=== PATIENT | female | born 1995 | race Hispanic/Latino ===

== ENCOUNTER 2017-12-26 13:13 | Emergency (ER) | payer BC ==
[2017-12-26 13:36] VITALS: BP 121/70; PULSE 91; RESP 16; TEMP 97; O2SAT 100
[2017-12-26] MEDS ORDERED: Sodium Chloride 0.9% 1,000 ML IV STA (14:27)
--- NOTE | 2017-12-26 14:30 | ED PDOC ---
HPI: Abdomen Time Seen by Provider: 12/26/17 14:16 Chief Complaint (Nursing): Abdominal Pain Chief Complaint (Provider): Abdominal Pain History Per: Patient History/Exam Limitations: no limitations Onset/Duration Of Symptoms: Days (x1) Current Symptoms Are (Timing): Still Present Exacerbating Factors: Movement, Cough Additional Complaint(s): 22 year old female with no past medical history presents to the ED complaining of lower abdominal pain since this morning. States pain worsens with movement, especially coughing/sneezing. Denies any associated dysuria, frequency, fever, nausea, vomiting, diarrhea, back pain, vaginal bleeding/discharge, shortness of breath, or chest pain. She states she has urinated 3 times today, which is less than usual, with small urinary volumes. PMD: [facility] Past Medical History Reviewed: Historical Data, Nursing Documentation, Vital Signs Vital Signs: Last Vital Signs Temp 97.0 F L 12/26/17 13:34 Pulse 91 H 12/26/17 13:34 Resp 16 12/26/17 13:34 BP 121/70 12/26/17 13:34 Pulse Ox 100 12/26/17 16:07 - Medical History PMH: No Chronic Diseases - Surgical History Surgical History: No Surg Hx - Family History Family History: States: Unknown Family Hx - Social History Current smoker - smoking cessation education provided: No Alcohol: Social Drugs: Denies - Home Medications Home Medications: Ambulatory Orders Medication Instructions Recorded Ciprofloxacin 0.3% [Ciloxan 0.3% 2 drop OU Q4 #1 drop 05/23/15 [facility]] - Allergies Allergies/Adverse Reactions: Allergies Allergy/AdvReac Type Severity Reaction Status Date / Time sulfamethoxazole Allergy RASH Verified 12/26/17 13:34 [From Bactrim] trimethoprim [From Bactrim] Allergy RASH Verified 12/26/17 13:34 Review of Systems ROS Statement: Except As Marked, All Systems Reviewed And Found Negative Constitutional: Negative for: Fever, Chills Cardiovascular: Negative for: Chest Pain Respiratory: Negative for: Shortness of Breath Gastrointestinal: Positive for: Abdominal Pain. Negative for: Nausea, Vomiting , Diarrhea Genitourinary Female: Negative for: Dysuria, Frequency, Vaginal Discharge, Vaginal Bleeding Musculoskeletal: Negative for: Back Pain Physical Exam - Reviewed Nursing Documentation Reviewed: Yes Vital Signs Reviewed: Yes - Physical Exam Appears: Positive for: Non-toxic, No Acute Distress Head Exam: Positive for: ATRAUMATIC, NORMAL INSPECTION, NORMOCEPHALIC Skin: Positive for: Normal Color, Warm, Dry Eye Exam: Positive for: EOMI, Normal appearance, PERRL Neck: Positive for: Normal, Painless ROM Cardiovascular/Chest: Positive for: Regular Rate, Rhythm. Negative for: Murmur Respiratory: Positive for: Normal Breath Sounds. Negative for: Accessory Muscle Use, Respiratory Distress Gastrointestinal/Abdominal: Positive for: Soft, Tenderness (mild tenderness across lower abdomen). Negative for: Distended, Guarding, Rebound Back: Positive for: Normal Inspection. Negative for: L CVA Tenderness, R CVA Tenderness, Vertebral Tenderness Extremity: Positive for: Normal ROM. Negative for: Pedal Edema, Deformity Neurologic/Psych: Positive for: Alert, Oriented (x3). Negative for: Motor/ Sensory Deficits - Laboratory Results Result Diagrams: 12/26/17 14:53 12/26/17 14:53 Interpretation Of Abn Labs: 3.4 k - ECG O2 Sat by Pulse Oximetry: 100 (RA) Pulse Ox Interpretation: Normal - CT Scan/US Transvaginal US Other Rad Studies (CT/US): Read By Radiologist, Radiology Report Reviewed Other Rad Interpretation: No ultrasound evidence of acute pathology or suspicious lesion in uterus. - Progress ED Course And Treament: Ultrasound unremarkable. Will order CT Abd&Pelvis with PO & IV contrast. Labs reviewed, potassium is low. Patient given 20 meq potassium chloride. 1636: Stable. AAOx3. Dr. Cannon to take over care. Fu on CT. Medical Decision Making Medical Decision Making: Time: 14:26 Initial Plan: * CMP * Lipase * CBC * IV fluids * Toradol 15 mg IVP * Urine dip * Urine preg * Pending Transvaginal US Scribe Attestation: Documented by Corrine Batista, acting as a scribe for Everton Eaton MD Provider Scribe Attestation: All medical record entries made by the Scribe were at my direction and personally dictated by me. I have reviewed the chart and agree that the record accurately reflects my personal performance of the history, physical exam, medical decision making, and the department course for this patient. I have also personally directed, reviewed, and agree with the discharge instructions and disposition. Disposition - Clinical Impression Clinical Impression: Abdominal pain - Patient ED Disposition Is Patient to be Admitted: Transfer of Care - Disposition Disposition Time: 16:38 Condition: FAIR Forms: [employer] (Greenlandic) Patient Signed Over To: Rodrick Cannon
[2017-12-26 14:58] LABS: BASO # 0.1 K/uL (0.0-0.2); BASO % 1.3 % (0.0-2.0); EOS # 0.4 K/uL (0.0-0.7); EOS % 5.9 % (0.0-4.0); HEMOGLOBIN 9.3 g/dL (12.0-16.0); LYMPH # 1.7 K/uL (1.0-4.3); LYMPH % 23.2 % (20.0-40.0); MEAN CELL VOLUME 72.6 fl (81.0-99.0); MEAN CORPUSCULAR HGB CONC 31.7 g/dL (33.0-37.0); MEAN PLATELET VOLUME 8.3 fl (7.2-11.7); MONO # 0.4 K/uL (0.0-0.8); MONO % 5.3 % (0.0-10.0); NEUT # 4.6 K/uL (1.8-7.0); NEUT % 64.3 % (50.0-75.0); RBC 4.04 Mil/uL (3.80-5.20); RED CELL DISTRIBUTION WIDTH 16.8 % (11.5-14.5); WHITE BLOOD COUNT 7.2 K/uL (4.8-10.8)
[2017-12-26 15:11] LABS: ALB/GLOB RATIO 1.5 (1.0-2.1); ALBUMIN 4.5 g/dL (3.5-5.0); ALT/SGPT 55 U/L (9-52); AST/SGOT 39 U/L (14-36); BLOOD UREA NITROGEN 7 mg/dl (7-17); CALCIUM 9.3 mg/dL (8.4-10.2); GFR AFRICAN-AMERICAN > 60; GFR NON-AFRICAN AMERICAN > 60; LIPASE 81 U/L (23-300)
--- NOTE | 2017-12-26 15:31 | US ---
HISTORY: vaginal bleeding COMPARISON: None available. TECHNIQUE: Transvaginal ultrasound examination of the pelvis was performed. FINDINGS: UTERUS: Measures 7 x 4.9 x 3.6 cm. Normal in size and appearance. No fibroid or other mass lesion seen. ENDOMETRIUM: Measures 11.1 mm in diameter. Unremarkable. CERVIX: No cervical abnormality identified. RIGHT OVARY: Measures 3.2 x 3.2 x 1.7 cm. No solid mass. Normal flow. LEFT OVARY: Measures 2.2 x 2.6 x 1.3 cm. No solid mass. Normal flow. FREE FLUID: No significant free fluid noted. OTHER FINDINGS: None. IMPRESSION: No ultrasound evidence of acute pathology or suspicious lesion in the uterus and ovaries
[2017-12-26] MEDS ORDERED: Iohexol 240 (50 ml) PO ONE (15:46)
[2017-12-26] MEDS ORDERED: Potassium Chloride 20 mEq ER Tab PO STA (15:47)
--- NOTE | 2017-12-26 16:45 | ED PDOC ---
- Laboratory Results Result Diagrams: 12/26/17 14:53 12/26/17 14:53 - ECG O2 Sat by Pulse Oximetry: 100 (RA) Pulse Ox Interpretation: Normal Medical Decision Making Medical Decision Making: Time: 17:00 Patient endorsed to me by Dr. Everton Eaton, pending CT scan and final disposition. Accession No. 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 HISTORY: abd pain COMPARISON: None available. TECHNIQUE: Contiguous axial images of the abdomen and pelvis. Oral and IV contrast was administered. Coronal and Sagittal reformats generated and reviewed. Contrast dose: 90 mL Omnipaque 300 Radiation dose: Total exam DLP = 327.24 mGy-cm. This CT exam was performed using one or more of the following dose reduction techniques: Automated exposure control, adjustment of the mA and/or kV according to patient size, and/or use of iterative reconstruction technique. FINDINGS: LOWER THORAX: No visible consolidation, pleural effusion, or pneumothorax. LIVER: Unremarkable. GALLBLADDER AND BILE DUCTS: Unremarkable. PANCREAS: Unremarkable. SPLEEN: Unremarkable. ADRENALS: Unremarkable. KIDNEYS AND URETERS: The kidneys enhance symmetrically. No hydronephrosis or obstructing renal calculus. BLADDER: The urinary bladder appears unremarkable. REPRODUCTIVE: Uterus is present. APPENDIX: The appendix appears within normal limits of caliber. No secondary signs of acute appendicitis. BOWEL: The stomach is nondistended. The bowel loops appear within normal limits of caliber without evidence of intestinal obstruction. PERITONEUM: No significant free fluid. No definite free air. LYMPH NODES: No bulky lymphadenopathy identified. VASCULATURE: No aortic aneurysm. BONES: No acute osseous abnormality is detected. OTHER FINDINGS: None. IMPRESSION: No acute findings identified. See above. Scribe Attestation: Documented by Corrine Batista, acting as a scribe for Rodrick Cannon MD Provider Scribe Attestation: All medical record entries made by the Scribe were at my direction and personally dictated by me. I have reviewed the chart and agree that the record accurately reflects my personal performance of the history, physical exam, medical decision making, and the department course for this patient. I have also personally directed, reviewed, and agree with the discharge instructions and disposition. Disposition - Clinical Impression Clinical Impression: Abdominal pain, Endometriosis - POA Present On Arrival: None - Disposition [facility] Disposition: Routine/Home Disposition Time: 19:03 Condition: FAIR Prescriptions: Naproxen [Naprosyn] 500 mg PO Q12H #20 tab Instructions: Endometriosis (ED) Forms: [employer] (Nauruan)
[2017-12-26] MEDS ORDERED: Iohexol 300 100 ML IJ ONE (17:39)
[2017-12-26] MEDS ORDERED: Sodium Chloride 0.9% 50 ML IV ONE (17:40)
--- NOTE | 2017-12-26 18:33 | CT ---
PROCEDURE: CT Abdomen and Pelvis with oral and IV contrast. HISTORY: abd pain COMPARISON: None available. TECHNIQUE: Contiguous axial images of the abdomen and pelvis. Oral and IV contrast was administered. Coronal and Sagittal reformats generated and reviewed. Contrast dose: 90 mL Omnipaque 300 Radiation dose: Total exam DLP = 327.24 mGy-cm. This CT exam was performed using one or more of the following dose reduction techniques: Automated exposure control, adjustment of the mA and/or kV according to patient size, and/or use of iterative reconstruction technique. FINDINGS: LOWER THORAX: No visible consolidation, pleural effusion, or pneumothorax. LIVER: Unremarkable. GALLBLADDER AND BILE DUCTS: Unremarkable. PANCREAS: Unremarkable. SPLEEN: Unremarkable. ADRENALS: Unremarkable. KIDNEYS AND URETERS: The kidneys enhance symmetrically. No hydronephrosis or obstructing renal calculus. BLADDER: The urinary bladder appears unremarkable. REPRODUCTIVE: Uterus is present. APPENDIX: The appendix appears within normal limits of caliber. No secondary signs of acute appendicitis. BOWEL: The stomach is nondistended. The bowel loops appear within normal limits of caliber without evidence of intestinal obstruction. PERITONEUM: No significant free fluid. No definite free air. LYMPH NODES: No bulky lymphadenopathy identified. VASCULATURE: No aortic aneurysm. BONES: No acute osseous abnormality is detected. OTHER FINDINGS: None. IMPRESSION: No acute findings identified. See above.
== END 2017-12-26 19:15 | disposition home or self-care (01) ==
LOC: H.ER 13:13
DX: N80.9 Endometriosis, unspecified (principal); R10.9 Unspecified abdominal pain
CPT/HCPCS: 74177; 76830; 80053; 81025; 83690; 85025; 96374; 99283; J1885; J7040; Q9966; Q9967

== ENCOUNTER 2019-04-17 21:32 | Emergency (ER) | payer BC ==
--- NOTE | 2019-04-17 22:34 | ED PDOC ---
HPI: Allergic Reaction Time Seen by Provider: 04/17/19 22:12 Chief Complaint (Nursing): Allergic Reaction Chief Complaint (Provider): possible allergic reaction History Per: Patient History/Exam Limitations: no limitations Onset/Duration Of Symptoms: Hrs Current Symptoms Are (Timing): Better Possible Cause: Medication Associated Symptoms: Itching Home/EMS Treatment: Benadryl Additional Complaint(s): 23 y/o female presents for evaluation of possible allergic reaction x 3 hours. Patient states she has a history of seasonal allergies; saw her primary doctor yesterday for nasal congestion, sneezing and was prescribed Montelukast, Prednisone, and Mometasone nasal spray. Patient states tonight was the first time she took the Montelukast, and within 30 minutes she felt internal itching, like something was "crawling" in her body. Patient states she took a Benadryl at that time and feels better now. Patient denies fever, headache, facial swelling, difficulty speaking/swallowing, body rash. Past Medical History Reviewed: Historical Data, Nursing Documentation, Vital Signs Vital Signs: Last Vital Signs Temp 97.7 F 04/17/19 21:56 Pulse 82 04/17/19 21:56 Resp 16 04/17/19 21:56 BP 115/72 04/17/19 21:56 Pulse Ox 98 04/17/19 21:56 Primary Care Provider: FRANCI CALVERT - Medical History PMH: No Chronic Diseases - Surgical History Surgical History: No Surg Hx - Family History Family History: States: Unknown Family Hx - Living Arrangements Living Arrangements: With Friends/Others - Home Medications Home Medications: Ambulatory Orders Medication Instructions Recorded Ciprofloxacin 0.3% [Ciloxan 0.3% 2 drop OU Q4 #1 drop 05/23/15 [facility]] Naproxen [Naprosyn] 500 mg PO Q12H #20 tab 12/26/17 - Allergies Allergies/Adverse Reactions: Allergies Allergy/AdvReac Type Severity Reaction Status Date / Time cat dander Allergy RASH Verified 04/17/19 21:58 dog dander Allergy RASH Verified 04/17/19 21:58 sulfamethoxazole Allergy RASH Verified 04/17/19 21:57 [From Bactrim] trimethoprim [From Bactrim] Allergy RASH Verified 04/17/19 21:57 Review of Systems ROS Statement: Except As Marked, All Systems Reviewed And Found Negative ENT: Positive for: Nose Congestion Physical Exam - Reviewed Nursing Documentation Reviewed: Yes Vital Signs Reviewed: Yes - Physical Exam Appears: Positive for: Well, Non-toxic, No Acute Distress Head Exam: Positive for: ATRAUMATIC Skin: Positive for: Normal Color Eye Exam: Positive for: Normal appearance ENT: Positive for: Nasal Congestion Neck: Positive for: Normal, Painless ROM Cardiovascular/Chest: Positive for: Regular Rate, Rhythm Respiratory: Positive for: Normal Breath Sounds Gastrointestinal/Abdominal: Positive for: Normal Exam Extremity: Positive for: Normal ROM Neurological/Psych: Positive for: Awake, Alert, Oriented (x3) - ECG O2 Sat by Pulse Oximetry: 98 - Progress ED Course And Treament: Patient was advised to d/c Montelukast and take different anti-histamine with decongestant Continue nasal spray and prednisone Follow up with [employer] Return precautions given Disposition - Clinical Impression Clinical Impression: Seasonal allergies, Medication adverse effect - Patient ED Disposition Is Patient to be Admitted: No Counseled Patient/Family Regarding: Diagnosis, Need For Followup - Disposition Referrals: Terry Loredo MD [Staff Provider] - Disposition: Routine/Home Disposition Time: 22:36 Condition: IMPROVED Instructions: Seasonal Allergies in Adults, Adverse Drug Reactions, Adult
[2019-04-17 23:00] VITALS: BP 111/70; PULSE 71; RESP 18; TEMP 97.9; O2SAT 99
== END 2019-04-17 23:00 | disposition home or self-care (01) ==
LOC: H.ER 21:32
DX: J30.2 Other seasonal allergic rhinitis (principal); Z88.1 Allergy status to other antibiotic agents